=== PATIENT | male | born 2000 | race Caucasian/White ===

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

== ENCOUNTER → 2020-07-06 | Outpatient (CLI) | payer OTHER ==
[~2020-07-06] MED LIST changes: +NEOPOLHCSU RIGHTEAR
== END | disposition home or self-care (01) ==
LOC: LAB SHORT 13:48 → PLD 13:48
DX: D22.61 Melanocytic nevi of right upper limb, including shoulder (principal)
CPT/HCPCS: 88305